=== PATIENT | female | born 2000 | race Two or more races ===

== ENCOUNTER 2023-05-23 20:00 | Emergency (ER) | payer OTHER ==
[~2023-05-23] VITALS: Ht 160 cm; Wt 70.0 kg
[2023-05-23 20:13] VITALS: BP 126/74; PULSE 62; RESP 14; TEMP 98.4
[2023-05-23] MEDS ORDERED: IBUPROFEN 600 MG TABLET PO ONE (22:15)
[2023-05-23] MEDS ORDERED: ACETAMINOPHEN/CODEINE 300-30 MG TABLET PO ONE (22:15)
[2023-05-23] MEDS ORDERED: ACET-2080 PO (23:49)
[2023-05-23] MEDS ORDERED: IBUP-1554 PO (23:49)
[2023-05-23] MEDS ORDERED: METH-659 PO (23:49)
== END 2023-05-24 00:13 | disposition home or self-care (01) ==
LOC: EMS 20:03
DX: S13.4XXA Sprain of ligaments of cervical spine, initial encounter (principal); M62.830 Muscle spasm of back; J45.909 Unspecified asthma, uncomplicated; X50.0XXA Overexertion from strenuous movement or load, initial encounter; Y93.89 Activity, other specified; Y92.89 Other specified places as the place of occurrence of the external cause; Y99.0 Civilian activity done for income or pay
CPT/HCPCS: 72040; 72070; 99284; Z7502; Z7610